=== PATIENT | male | born 1945 | race Caucasian/White ===

== ENCOUNTER 2016-04-20 10:14 | Observation (INO) ==
[2016-04-20] MEDS ORDERED: *HR* Heparin 5,000 UNIT/ML VIAL IVP PRN ×2 (10:28)
[2016-04-20] MEDS ORDERED: *HR* Heparin 5,000 UNIT/ML VIAL IVP ONE ×2 (10:28→12:52)
[2016-04-20] MEDS ORDERED: Heparin 25,000 UNIT/500 ML D5W 25,000 UNIT/500 ML MLS IVC SCH (10:30)
[2016-04-20 10:40] LABS: Hematocrit 48.4 % (37.5-50.1); Hemoglobin 16.1 g/dL (12.9-16.9); Mean Corpuscular HGB Conc 33.3 g/dL (31.6-35.5); Mean Corpuscular Hemoglobin 28.7 pg (28.0-33.3); Mean Corpuscular Volume 86.3 fL (83.0-100.0); Mean Platelet Volume 10.1 fL (9.4-12.4); Platelet Count 150 K/mcL (140-400); Red Blood Count 5.61 M/mcL (4.19-5.50); Red Cell Distribution Width 13.9 % (11.5-14.5)
--- NOTE | 2016-04-20 10:42 | Emergency Department Note ---
START Narrative - START START: I examined this patient and my medical decision-making was reviewed with the SOIL CHECKER/PA/Advanced Practice Nurse/Resident Physician. I agree with the documented findings, disposition and treatment plan as described except to the extent set forth below. Patient sent to the emergency department from cardiology Department for an echo that showed a thrombus in his left ventricle. He should had a syncopal episode recently and had echo ordered to follow up with that. Denies chest pain shortness of breath. Exam shows him in no distress. Heart rate in the 60s. Lungs clear. Plan. Heparin basic labs and admission.
--- NOTE | 2016-04-20 10:46 | Emergency Department Note ---
Disposition Clinical Impression: Thrombus in heart chamber Disposition: Admitted As Inpatient General Adult HPI - General Chief complaint: ED Recheck/Abnormal Lab/Rx Stated complaint: income auditor sent pt for blood clot in heart Time Seen by Provider: 04/20/16 10:19 Source: patient Limitations: no limitations Nursing Notes Reviewed: Yes Vital Signs Reviewed: Yes - History of Present Illness HPI Narrative: Mr. Barillas, a 70yo male, presents from home by POV after being called by his income auditor, Dr. Kerr, for mural thrombi in left ventricle found on echo performed earlier. Indication for echo was a syncopal episode 2 weeks ago wherein patient was bradycardic and hypotensive after waking up. Denies chest pain, palpitations, weakness, dizziness, confusion, headache. Patient's only anticoagulation at this time is aspirin. PMH: insulin dependent DM, agent orange exposure, hx bradycardia. Pain Scale: 0 - Related Data Home Medications Medication Instructions Recorded Confirmed Allopurinol [Zyloprim] 100 mg PO BID 04/20/16 04/20/16 Amlodipine [Norvasc] 5 mg PO QAM 04/20/16 04/20/16 Aspirin 162 mg PO QAM 04/20/16 04/20/16 Carvedilol [Coreg] 25 mg PO BID 04/20/16 04/20/16 Cholecalciferol (Vitamin D3) 2,000 unit PO QPM 04/20/16 04/20/16 [Vitamin D] Cholestyramine 4 gm PO 1200 04/20/16 04/20/16 Finasteride [Proscar] 5 mg PO QAM 04/20/16 04/20/16 Hydrochlorothiazide 25 mg PO QPM 04/20/16 04/20/16 Insulin ASPART [Novolog Flexpen] 35 unit SQ TID 04/20/16 04/20/16 Insulin Glargine [Lantus] 50 unit SQ HS 04/20/16 04/20/16 Levothyroxine [Synthroid] 112 mcg PO QAM 04/20/16 04/20/16 Lisinopril [Zestril] 20 mg PO BID 04/20/16 04/20/16 Lovastatin [Mevacor] 20 mg PO QPM 04/20/16 04/20/16 Allergies Allergy/AdvReac Type Severity Reaction Status Date / Time Oxycodone [From OxyContin] Allergy Hallucinati Verified 04/20/16 10:21 ng All systems ED: reviewed and negative except as stated. Constitutional: Denies: fever, chills, weakness Cardiovascular: Reports: syncope (2 weeks ago). Denies: chest pain, palpitations, dyspnea on exertion, orthopnea Respiratory: Denies: cough, dyspnea, wheezes Gastrointestinal: Denies: abdominal pain, nausea, vomiting, diarrhea, constipation, hematemesis, melena, hematochezia Genitourinary: Denies: dysuria Neurological: Denies: headache, weakness, numbness Hematological/Lymphatic: Denies: easy bleeding, easy bruising Past Medical History - Past Medical History Medical history: Reports: coronary artery disease, diabetes, hyperlipidemia, hypertension, other Surgical history: Reports: other Psychiatric history: Reports: no psych history - Social History Smoking Status: Never smoker Smokeless Tobacco Status: Yes Alcohol use: Reports: none Drug use: Reports: none Physical Exam General: Patient is alert, oriented, and in no acute distress. HEENT: No facial asymmetry. Head is normocephalic and atraumatic. Trachea midline. Cardiovascular: Heart bradycardic rate with regular rhythm without clicks, rubs , gallops, or murmurs. No JVD. PMI nondisplaced. Respiratory: Symmetric chest rise with good respiratory effort. Bilateral breath sounds are clear without wheezing, crackles, or rhonchi. Abdomen: Bowel sounds present normoactive x-4 quadrants. Abdomen is soft, nondistended, and nontender. No organomegaly noted. Psych: Patient's affect is appropriate for situation. - General Limitations: no limitations General appearance: alert, in no apparent distress - Head Head exam: atraumatic, normocephalic - Eye Eye exam: Present: normal appearance - Neurological Exam Neurological exam: Present: alert, oriented X3 - Skin Skin exam: Present: warm, dry, intact Course Course Narrative: Echo 04/20/16: LVEF 50%. akinesis of mid anteroseptum, apical septum, apical inferior wall, apex. Small LV apical thrombi. Mild-moderate concentric LV hypertrophy. Mild LV diastolic dysfunction. No valvular dysfunction. Normal RV size and fcn. Will begin on heparin and admit. Patient was not aware he would be admitted for management of the clot in his heart. He left his truck unlocked. I spoke with security requesting they send someone down to help the patient secure his truck. Vital Signs Temperature 98.1 F 04/20/16 10:19 Pulse Rate 61 04/20/16 10:19 Respiratory Rate 16 04/20/16 10:19 Blood Pressure 139/86 04/20/16 10:19 O2 Sat by Pulse Oximetry 97 04/20/16 10:19 Temperature 97.6 F 04/21/16 11:16 Pulse Rate 53 04/21/16 11:16 Respiratory Rate 16 04/21/16 11:16 Blood Pressure 120/71 04/21/16 11:16 O2 Sat by Pulse Oximetry 96 04/21/16 11:16 Oxygen Delivery Oxygen Delivery Room Air Medical Decision Making - Lab Data Result diagrams: 04/21/16 04:01 04/20/16 10:31 Lab Results 04/20/16 04/20/16 04/20/16 Range/Units 10:31 10:37 10:37 WBC 6.5 (4.3-11.1) K/mcL RBC 5.61 H (4.19-5.50) M/mcL Hgb 16.1 (12.9-16.9) g/dL Hct 48.4 (37.5-50.1) % MCV 86.3 (83.0-100.0) fL MCH 28.7 (28.0-33.3) pg MCHC 33.3 (31.6-35.5) g/dL RDW 13.9 (11.5-14.5) % Plt Count 150 (140-400) K/mcL MPV 10.1 (9.4-12.4) fL PT 10.7 (9.4-12.1) Seconds INR 1.0 APTT 30.5 (26.0-36.0) Seconds Sodium 142 (136-145) mEq/L Potassium 4.0 (3.5-4.5) mEq/L Chloride 109 (98-109) mEq/L Carbon Dioxide 24 (19-29) mEq/L BUN 21 (8-26) mg/dL Creatinine 1.40 H (0.72-1.25) mg/dL Est GFR ( Amer) > 60 (> 60) Est GFR (Non-Af Amer) 50 L (> 60) BUN/Creatinine Ratio 15 (6-26) Glucose 150 H (70-99) mg/dL Calculated Osmolality 300 (280-300) Calcium 9.8 (8.6-10.8) mg/dL
[2016-04-20 10:49] LABS: Prothrombin Time 10.7 Seconds (9.4-12.1)
[2016-04-20 10:52] LABS: Activated Partial Thrombo Time 30.5 Seconds (26.0-36.0)
[2016-04-20 11:01] LABS: BUN/Creatinine Ratio 15 (6-26); Blood Urea Nitrogen 21 mg/dL (8-26); Calcium 9.8 mg/dL (8.6-10.8); Carbon Dioxide 24 mEq/L (19-29); Chloride 109 mEq/L (98-109); Glucose 150 mg/dL (70-99); Osmolality,Calculated 300 (280-300); Sodium 142 mEq/L (136-145); eGFR For African Americans > 60 (> 60); eGFR For Non-African Americans 50 (> 60)
[2016-04-20] MEDS ORDERED: Dextrose Gel 15 GM PO PRN ×2 (12:52)
[2016-04-20] MEDS ORDERED: *HR* Morphine 2 MG/ML SYRINGE IVP PRN (12:52)
[2016-04-20] MEDS ORDERED: Naloxone 0.4 MG/ML INJ IVP PRN (12:52)
[2016-04-20] MEDS ORDERED: Ondansetron 4 MG/2 ML VIAL IVP PRN (12:52)
[2016-04-20] MEDS ORDERED: D5% in Water 1,000 ML IV PRN (12:52)
[2016-04-20] MEDS ORDERED: Acetaminophen 325 MG TABLET PO PRN (12:52)
[2016-04-20] MEDS ORDERED: *HR* Dextrose 50 % in Water (Syg) 50 ML SYRINGE IVP PRN (12:52)
--- NOTE | 2016-04-20 13:00 | Internal Med History&Physical ---
Date of Encounter: 04/20/16 Time of Encounter: 12:57 Assessment and Plan (1) Left ventricular thrombus Current visit: Yes Status: Acute Continue heparin drip Consult cardiology to decide on identical lesion therapy as outpatient Continue telemetry Mild hydration (2) CAD (coronary artery disease) Current visit: Yes Status: Acute Continue aspirin Stable Qualifiers: Coronary Disease-Associated Artery/Lesion type: unspecified vessel or lesion type [place] vs. transplanted heart: unspecified whether [place] or transplanted heart Associated angina: angina presence unspecified Qualified Code(s): I25.10 - Atherosclerotic heart disease of [place] coronary artery without angina pectoris (3) Diabetes Current visit: Yes Status: Acute Continue insulin at home doses of 50 units of Lantus at night and NovoLog 35 units 3 times a day Insulin sliding scale Qualifiers: Diabetes mellitus type: type 2 Diabetes mellitus complication status: without complication Diabetes mellitus custodial insulin use: with terminal supervisor use Qualified Code(s): E11.9 - Type 2 diabetes mellitus without complications ; Z79.4 - terminal gauger (current) use of insulin (4) Hypertension Current visit: Yes Status: Acute Qualifiers: Hypertension type: essential hypertension Qualified Code(s): I10 - Essential (primary) hypertension (5) Obstructive sleep apnea Current visit: Yes Status: Acute Omeprazole for GI prophylaxis and heparin drip for GI DVT prophylaxis. Patient will be admitted for observation. Full code. Time spent on this admission 40 minutes. He is high risk due to left ventricular thrombus Internal Medicine - H&P: HPI Chief complaint: Abnormal echocardiogram Admitted From: Emergency Dept History of present illness: Mr. Barillas is a 70 year old male with a past medical history of diabetes type 2 insulin-dependent, CAD status post multiple stents who had a syncopal episode about 10 days ago, apparently back then he developed bradycardia and low blood pressure, became dizzy but never lost consciousness. She was scheduled to have an echocardiogram was read earlier today by Dr. Hamlin which showed a small left ventricular thrombus with an ejection fraction of 50%, akinesis of mid anteroseptum, apical septum, apical inferior wall, apex. Small LV apical thrombi. Mild-moderate concentric LV hypertrophy. Mild LV diastolic dysfunction. No valvular dysfunction. Normal RV size and fcn. The patient was instructed to come to the emergency room. Currently he is asymptomatic and was started on heparin drip. Denies any chest pain, shortness of breath his blood pressure is 115/74. 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, chronic kidney disease stage III, hypothyroidism, BPH, gout, obstructive sleep apnea) Psychiatric history: no psych history - Past Surgical History Surgical History: other (Cardiac catheterization, umbilical hernia repair, right biceps tendon surgery, nasal surgery) - Social History Smoking Status: Former smoker (Quit a 41 years old) Smokeless Tobacco Status: Yes Alcohol use: none Drug use: none - Additional Family History Additional family history: Father with lung cancer and mother with bladder cancer Internal Medicine - H&P: Meds Allopurinol [Zyloprim] 100 mg PO BID 04/20/16 [History] Amlodipine [Norvasc] 5 mg PO QAM 04/20/16 [History] Aspirin 162 mg PO QAM 04/20/16 [History] Carvedilol [Coreg] 25 mg PO BID 04/20/16 [History] Cholecalciferol (Vitamin D3) [Vitamin D] 2,000 unit PO QPM 04/20/16 [History] Cholestyramine 4 gm PO 1200 04/20/16 [History] Finasteride [Proscar] 5 mg PO QAM 04/20/16 [History] Hydrochlorothiazide 25 mg PO QPM 04/20/16 [History] Insulin ASPART [Novolog Flexpen] 35 unit SQ TID 04/20/16 [History] Insulin Glargine [Lantus] 50 unit SQ HS 04/20/16 [History] Levothyroxine [Synthroid] 112 mcg PO QAM 04/20/16 [History] Lisinopril [Zestril] 20 mg PO BID 04/20/16 [History] Lovastatin [Mevacor] 20 mg PO QPM 04/20/16 [History] Allergies Oxycodone [From OxyContin] Allergy (Verified 04/20/16 10:21) Hallucinating All Systems PM: A 10-system review of systems was performed and is negative for pertinent findings except as documented above in the HPI. Review of systems: No dizziness, chest pain, shortness of breath, no abdominal pain. Other systems out on the reviewed were negative - Constitutional Vitals: Temp Pulse Resp BP Pulse Ox 98.4 F 54 16 125/80 98 04/20/16 12:40 04/20/16 12:40 04/20/16 12:40 04/20/16 12:40 04/20/16 12:40 General appearance: Present: A&O X 3 - Head Head exam: Present: atraumatic, normocephalic - Eye Eye exam: Present: PERRL, conjuntiva pink, sclera anicteric Pupils: Present: PERRL - Neck Neck exam general surgery: Present: supple, trachea midline. Absent: lymphadenopathy - Respiratory Respiratory exam: Present: CTAB. Absent: accessory muscle use, rales, rhonchi, wheezes - Cardiovascular Cardiovascular exam: Present: RRR, +S1, +S2. Absent: diastolic murmur, gallop, rubs, systolic murmur - GI/Abdominal GI/Abdominal exam: Present: normal bowel sounds, soft, no peritoneal signs. Absent: distended, tenderness - Extremities Exam Extremities exam: Present: warm, radial pulses palpable and symetrical. Absent : calf tenderness, cyanotic, pedal edema - Neurological Exam Neurological exam: Present: CN II-XII intact, oriented X3, no focal deficits. Absent: pronater drift, facial droop, speech deficit - Skin Skin exam: Present: dry, intact Internal Med - H&P Results - Labs CBC & Chem 7: 04/20/16 10:37 04/20/16 10:31
--- NOTE | 2016-04-20 13:27 | Cardiology Consult Note ---
Date of Encounter: 04/20/16 Time of Encounter: 13:00 Assessment and Plan (1) Left ventricular thrombus Current Visit: Yes Status: Acute Outpatient TTE completed for syncope. EF 50% (improved) with small left ventricular apical thrombus--reading waste management engineer called patient and recommended inpatient admission for anticoagulation. Etiology and chronicity unclear--no prior TTE for comparison. Hx of apical infarct. Denies hx of arrhythmia. Recommend retirement anticoagulation with Coumadin; education provided to patient regarding coumadin therapy, he is agreeable to proceed. Will complete referral to Coumadin clinic. Continue heparin gtt until INR therapeutic, goal 2-3. Alternatively, patient can be discharged with Coumadin/lovenox bridge. (2) Syncope Current Visit: Yes Status: Acute Isolated episode of syncope in early April; denies recurrence. BP was reported at 54/28 and HR 40--resolved within minutes. He did not seek medical attention at that time. TTE: EF 50% without significant valvular dysfunction. Continue to monitor telemetry overnight. Check carotids, orthostatic vital signs. Qualifiers: Syncope type: unspecified Qualified Code(s): R55 - Syncope and collapse (3) CAD (coronary artery disease) Current Visit: Yes Status: Chronic Hx of CAD s/p PCI to proximal, mid, and distal LAD in 2010. Most recent ischemic evaluation in July 2014 (pre-op): moderate fixed perfusion defect involving the apex and surrounding apical campo consistent with prior infarct; mild apical dipti-infarct ischemia, gated EF 45%. Medical mgmt recommended. Recent TTE shows improved EF, 50%. EF 25% prior to PCI in 2010. No ischemic ECG changes noted. He denies chest pain or angina. Continue asa, statin, and betablocker. Qualifiers: Coronary Disease-Associated Artery/Lesion type: [place] artery [place] vs. transplanted heart: [place] heart Associated angina: without angina Qualified Code(s): I25.10 - Atherosclerotic heart disease of [place] coronary artery without angina pectoris Discussion w patient/family: The assessment and plan as outlined above was discussed with the patient and/or family members who expressed understanding and agreement. All questions were answered. Thank you for involving us in the care of your patient. Please call with any questions. The patient will be discussed and reviewed with Dr. Munroe; changes to be made accordingly. History of Present Illness Consult date: 04/20/16 Requesting physician: Bran Bowden Consult reason: LV thrombus Chief complaint: Syncope x3 weeks ago; LV thrombus History of present illness: Mr. Barillas is a 70 year old male with PMH significant for CAD s/p PCI to LAD ( 2010), recovered cardiomyopathy, CKD-3, gout, HTN, HLD, and JACOB who presented to the ED today due to abnormal echocardiogram findings. Reading waste management engineer, Dr. Kerr, instructed patient to go to the ED due to LV thrombus seen on TTE. Echocardiogram ordered as outpatient after a syncopal event occurred at home 3 weeks ago. He reported he was sitting at his computer playing card games when he suddenly felt like he was going to pass out, he then walked to check his sugar which was normal and before he could check his BP he passed out for a few seconds (witnessed by ); his blood pressure was then taken and was reportedly 54/28 and HR in the 40s. Within an hour his blood pressure and HR normalized and denies recurrent episodes. He denies chest pain or discomfort, shortness of breath, fatigue, leg edema, or palpitations. Past Med Surg Social Fam HX - Past Medical History Medical history: cardiomyopathy (ischemic), coronary artery disease, diabetes, hyperlipidemia, hypertension, renal disease Psychiatric history: no psych history - Past Surgical History Surgical History: other - Social History Smoking Status: Never smoker Smokeless Tobacco Status: Yes Alcohol use: none Drug use: none Medications and Allergies Allopurinol [Zyloprim] 100 mg PO BID 04/20/16 [History] Amlodipine [Norvasc] 5 mg PO QAM 04/20/16 [History] Aspirin 162 mg PO QAM 04/20/16 [History] Carvedilol [Coreg] 25 mg PO BID 04/20/16 [History] Cholecalciferol (Vitamin D3) [Vitamin D] 2,000 unit PO QPM 04/20/16 [History] Cholestyramine 4 gm PO 1200 04/20/16 [History] Finasteride [Proscar] 5 mg PO QAM 04/20/16 [History] Hydrochlorothiazide 25 mg PO QPM 04/20/16 [History] Insulin ASPART [Novolog Flexpen] 35 unit SQ TID 04/20/16 [History] Insulin Glargine [Lantus] 50 unit SQ HS 04/20/16 [History] Levothyroxine [Synthroid] 112 mcg PO QAM 04/20/16 [History] Lisinopril [Zestril] 20 mg PO BID 04/20/16 [History] Lovastatin [Mevacor] 20 mg PO QPM 04/20/16 [History] Allergies Oxycodone [From OxyContin] Allergy (Verified 04/20/16 10:21) Hallucinating All Systems Review: A 10-system review of systems was performed and is negative for pertinent findings except as documented above in the HPI. - Cardiovascular Cardiovascular: as per HPI Physical Examination Vital Signs, Last 4 Hours Temp Pulse Resp BP Pulse Ox 04/20/16 12:40 98.4 F 54 16 125/80 98 04/20/16 12:04 16 110/67 General: Conversant, No Apparent Distress HEENT: Atraumatic, Normocephaly, Mucus Membranes Moist Neck: No JVD Cardiac: Reg Rate and Rhythm, Normal S1 and S2 Lungs: Normal Breath Sounds Neuro: Alert and responsive Abdomen: Soft Skin: No rashes noted on visualized skin Musculoskeletal: No Chest Wall Tenderness Extremities: No Edema, Normal Pulses Results 04/20/16 10:37 04/20/16 10:31 Active Medications Acetaminophen (Tylenol) 650 mg PO Q6HR PRN PRN Reason: Mild Pain (1-3) Stop: 10/20/16 12:53 Allopurinol (Zyloprim) 100 mg PO BID [facility] Stop: 10/20/16 21:01 Amlodipine Besylate (Norvasc) 5 mg PO QAM [facility] PRN Reason: Protocol Stop: 10/21/16 09:01 Aspirin (Aspirin) 162 mg PO QAM [facility] Stop: 10/21/16 09:01 Carvedilol (Coreg) 25 mg PO BIDWM [facility]USAN PRN Reason: Protocol Stop: 10/20/16 17:01 Dextrose/Water (Dextrose 50% (Syg)) 25 ml IVP AD PRN PRN Reason: Hypoglycemia Stop: 10/20/16 12:53 Finasteride (Proscar) 5 mg PO QAM SUSAN PRN Reason: Protocol Stop: 10/21/16 09:01 Glucagon (Glucagen) 1 mg IM ONCE PRN PRN Reason: Hypoglycemia Stop: 10/20/16 12:53 Glucose (Gluctose) 15 gm PO ONCE PRN PRN Reason: Hypoglycemia Stop: 10/20/16 12:53 Glucose (Gluctose) 30 gm PO ONCE PRN PRN Reason: Hypoglycemia Stop: 10/20/16 12:53 Heparin Sodium (Porcine) (Heparin) 6,100 unit 70 unit/kg (6100 unit) IVP Q6HR PRN PRN Reason: SEE COMMENTS Stop: 10/20/16 10:29 Heparin Sodium (Porcine) (Heparin) 3,100 unit 35 unit/kg (3100 unit) IVP Q6H PRN PRN Reason: SEE COMMENTS Stop: 10/20/16 10:29 Hydrochlorothiazide (Hydrochlorothiazide) 25 mg PO QPM SUSAN PRN Reason: Protocol Stop: 10/20/16 18:01 Heparin Sodium/Dextrose (Heparin 25,000 Unit/500 Ml D5w) 25,000 unit in 500 mls @ 24.512 mls/hr IVC .[id number] SUSAN; 14 UNIT/KG/HR PRN Reason: Protocol Stop: 10/20/16 10:31 Last Admin: 04/20/16 10:56 Dose: 14 unit/kg/hr, 24.512 mls/hr Dextrose (Dextrose 5%) 1,000 mls @ 100 mls/hr IV CONT PRN PRN Reason: HYPOGLYCEMIA Stop: 10/20/16 12:53 Insulin Detemir (Levemir) 50 unit SQ HS [facility] Stop: 10/20/16 21:01 Insulin Human Lispro (Humalog) 35 units SQ TIDAC [facility] Stop: 10/20/16 16:31 Insulin Human Lispro (Humalog) 0 units SQ TIDAC [facility] PRN Reason: Protocol Stop: 10/20/16 16:31 Insulin Human Lispro (Humalog) 0 units SQ HS [facility] PRN Reason: Protocol Stop: 10/20/16 21:01 Levothyroxine Sodium (Synthroid) 112 mcg PO DAILY@0630 [facility] Stop: 10/21/16 06:31 Lisinopril (Zestril) 20 mg PO BID [facility] PRN Reason: Protocol Stop: 10/20/16 21:01 Lovastatin (Mevacor) 20 mg PO QPM [facility] Stop: 10/20/16 18:01 Morphine Sulfate (Morphine Sulfate) 2 mg IVP Q4HR PRN PRN Reason: Severe Pain (7-10) Stop: 10/20/16 12:53 Naloxone HCl (Narcan) 0.4 mg IVP Q2MIN PRN PRN Reason: Opioid Reversal Stop: 10/20/16 12:53 Omeprazole (Prilosec) 20 mg PO DAILY@0630 SUSAN PRN Reason: Protocol Stop: 10/21/16 06:31 Ondansetron HCl (Zofran) 4 mg IVP Q8HR PRN PRN Reason: Nausea And Vomiting Stop: 10/20/16 12:53 - Imaging and Cardiology Echo: report reviewed Cardiac cath: report reviewed Other Results: Telemetry: avg HR=56 SB. No significant pause. - EKG Interpretation EKG results cardiology: personally reviewed Consult Discharge Plan - Plan Referrals: Danelle Reynoso MD [Primary Care Provider] -
--- NOTE | 2016-04-20 14:35 | Electrocardiograph Report ---
[facility] Test Date: 2016-04-20 Pat Name: Cale Barillas Department: 105 Room: 2A37 Gender: M Automation Engineer: TIKA : [id number] Requested By: Alvarado Michaels Order Number: [id number] Reading MD: Yohannes Bolanos MD Measurements Intervals [place] Rate: 57 P: 40 NM: 174 QRS: -48 QRSD: 102 T: 110 QT: 394 QTc: 388 Interpretive Statements SINUS BRADYCARDIA MARKED LEFT AXIS DEVIATION LOW QRS VOLTAGE IN EXTREMITY LEADS POSSIBLE ANTERIOR MYOCARDIAL INFARCTION, OF INDETERMINATE AGE Electronically Signed On 04-20-16 14:33:46 EST by Yohannes Bolanos MD
[2016-04-20] MEDS ORDERED: *HR* Warfarin 5 MG TABLET PO ONE (16:29)
[2016-04-20 17:11] LABS: Hematocrit 46.6 % (37.5-50.1); Hemoglobin 15.5 g/dL (12.9-16.9); Mean Corpuscular HGB Conc 33.3 g/dL (31.6-35.5); Mean Corpuscular Hemoglobin 28.5 pg (28.0-33.3); Mean Corpuscular Volume 85.8 fL (83.0-100.0); Mean Platelet Volume 10.4 fL (9.4-12.4); Platelet Count 135 K/mcL (140-400); Red Blood Count 5.43 M/mcL (4.19-5.50)
[2016-04-20 17:22] LABS: INR 1.1; Prothrombin Time 11.4 Seconds (9.4-12.1)
[2016-04-20] MEDS: Insulin LISPRO 300 UNITS/3 ML VIAL SQ SCH ×2 (17:35)
[2016-04-20 17:40] LABS: Activated Partial Thrombo Time 125.9 Seconds (26.0-36.0)
[2016-04-20 17:49] LABS: Heparin anti-factor XA UFH 0.78 IU/mL (0.30-0.70)
[2016-04-20] MEDS ORDERED: hydroCHLOROthiazide 25 MG TABLET PO SCH (18:00)
[2016-04-20] MEDS: Lisinopril 20 MG TABLET PO SCH (20:38)
[2016-04-20] MEDS ORDERED: Insulin LISPRO 300 UNITS/3 ML VIAL SQ SCH (21:00)
[2016-04-20] MEDS ORDERED: Insulin DETEMIR 100 UNIT/ML X5UNITS SQ SCH (21:00)
[2016-04-21 04:21] LABS: Basophils # 0.1 K/mcL (0.0-0.2); Basophils % 1.2 %; Eosinophils # 0.2 K/mcL (0.0-0.6); Hematocrit 44.2 % (37.5-50.1); Hemoglobin 14.7 g/dL (12.9-16.9); Immature Granulocytes % 0.7 % (0-4); Lymphocytes # 1.7 K/mcL (0.6-4.6); Lymphocytes % 27.6 %; Mean Corpuscular HGB Conc 33.3 g/dL (31.6-35.5); Mean Corpuscular Hemoglobin 28.7 pg (28.0-33.3); Mean Corpuscular Volume 86.3 fL (83.0-100.0); Mean Platelet Volume 10.2 fL (9.4-12.4); Monocytes # 0.6 K/mcL (0.0-1.3); Monocytes % 10.2 %; Neutrophils # 3.5 K/mcL (1.6-8.9); Platelet Count 138 K/mcL (140-400); Red Blood Count 5.12 M/mcL (4.19-5.50); Segmented Neutrophils % 57.3 %
[2016-04-21 04:30] LABS: INR 1.1; Prothrombin Time 12.3 Seconds (9.4-12.1)
[2016-04-21 04:33] LABS: Activated Partial Thrombo Time 73.1 Seconds (26.0-36.0)
[2016-04-21 04:41] LABS: Chol/HDL Ratio 5.1 (0-4.9); Cholesterol 132 mg/dL (< 200); HDL Cholesterol 26 mg/dL (40-59); Triglycerides 509 mg/dL (< 150)
[2016-04-21] MEDS ORDERED: Finasteride 5 MG TABLET PO SCH (09:00)
[2016-04-21] MEDS ORDERED: Aspirin 81 MG TAB.CHEW PO SCH (09:00)
[2016-04-21] MEDS ORDERED: amLODIPine 5 MG TABLET PO SCH (09:00)
[2016-04-21] MEDS: Insulin LISPRO 300 UNITS/3 ML VIAL SQ SCH ×4 (09:01→12:02)
[2016-04-21] MEDS: Lisinopril 20 MG TABLET PO SCH (09:03)
--- NOTE | 2016-04-21 09:09 | Cardiology Progress Note ---
Date of Encounter: 04/21/16 Time of Encounter: 08:30 Assessment and Plan (1) Left ventricular thrombus Current Visit: Yes Status: Acute Outpatient TTE completed for syncope. 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 Etiology and chronicity unclear--no prior TTE for comparison. Hx of apical infarct. Denies hx of arrhythmia. Heat CT negative for acute abnormality. Recommend intermediate anticoagulation with Coumadin; education provided to patient regarding coumadin therapy, he is agreeable to proceed. Will complete referral to Coumadin clinic. Continue heparin gtt until INR therapeutic, goal 2-3. Alternatively, patient can be discharged with Coumadin/lovenox bridge. (2) Syncope Current Visit: Yes Status: Acute Isolated episode of syncope in early April; denies recurrence. BP was reported at 54/28 and HR 40--resolved within minutes. He did not seek medical attention at that time. TTE: EF 50% without significant valvular dysfunction. Pre-reeder carotids: normal bilaterally. Telemetry review: avg HR=52 SB. Min=48 nocturnal hours. No significant pause. Will decrease Coreg to 12.5 mg BID. Qualifiers: Syncope type: unspecified Qualified Code(s): R55 - Syncope and collapse (3) CAD (coronary artery disease) Current Visit: Yes Status: Chronic Hx of CAD s/p PCI to proximal, mid, and distal LAD in 2010. Most recent ischemic evaluation in July 2014 (pre-op): moderate fixed perfusion defect involving the apex and surrounding apical campo consistent with prior infarct; mild apical dipti-infarct ischemia, gated EF 45%. Medical mgmt recommended. Recent TTE shows improved EF, 50%. EF 25% prior to PCI in 2010. No ischemic ECG changes noted. He denies chest pain or angina. Continue asa, statin, and betablocker. Qualifiers: Coronary Disease-Associated Artery/Lesion type: [place] artery [place] vs. transplanted heart: [place] heart Associated angina: without angina Qualified Code(s): I25.10 - Atherosclerotic heart disease of [place] coronary artery without angina pectoris Discussion w patient/family: The assessment and plan as outlined above was discussed with the patient and/or family members who expressed understanding and agreement. All questions were answered. Thank you for involving us in the care of your patient. Please call with any questions. The patient was discussed and reviewed with Dr. Munroe; Cardiology will sign- off, please call with questions. Subjective Principal diagnosis: LV thrombus Interval history: Seen and examined. No complaints overnight. Objective Vital Signs, Last 4 Hours Temp Pulse Resp BP Pulse Ox 04/21/16 07:04 97.6 F 98 16 134/71 99 General: Conversant, No Apparent Distress HEENT: Atraumatic, Normocephaly, Mucus Membranes Moist Cardiac: Reg Rate and Rhythm, Normal S1 and S2 Lungs: Normal Breath Sounds Neuro: Alert and responsive Abdomen: Soft Skin: No rashes noted on visualized skin Musculoskeletal: No Chest Wall Tenderness Extremities: No Edema, Normal Pulses Results 04/21/16 04:01 04/20/16 10:31 Lab Results 04/20/16 04/20/16 04/20/16 16:45 16:45 21:01 WBC 6.1 Hgb 15.5 Hct 46.6 Plt Count 135 L INR 1.1 APTT 125.9 H* D 78.3 H 04/21/16 04/21/16 04:01 04:01 WBC 6.1 Hgb 14.7 Hct 44.2 Plt Count 138 L INR 1.1 APTT 73.1 H - Imaging and Cardiology Echo: report reviewed Cardiac cath: report reviewed Other Results: 12 hour tele: avg HR=52 SB. - EKG Interpretation EKG results cardiology: personally reviewed Consult Discharge Plan - Plan Referrals: Danelle Reynoso MD [Primary Care Provider] -
[2016-04-21 11:18] VITALS: BP 120/71
--- NOTE | 2016-04-21 14:49 | Discharge Summary ---
Date of Encounter: 04/21/16 Time of Encounter: 11:30 - Discharge Diagnosis (1) Left ventricular thrombus Priority: Primary Status: Acute (2) Chronic kidney disease Priority: Secondary Status: Chronic Qualifiers: Chronic kidney disease stage: stage 3 (moderate) Qualified Code(s): N18.3 - Chronic kidney disease, stage 3 (moderate) (3) Diabetes Priority: Secondary Status: Chronic Qualifiers: Diabetes mellitus type: type 2 Diabetes mellitus complication status: with kidney complications Diabetes mellitus complication detail: with chronic kidney disease Diabetes mellitus halfway insulin use: with moth exterminator use Chronic kidney disease stage: stage 3 (moderate) Qualified Code(s): E11.22 - Type 2 diabetes mellitus with diabetic chronic kidney disease; N18.3 - Chronic kidney disease, stage 3 (moderate); Z79.4 - skilled nursing (current) use of insulin (4) Hypertension Priority: Secondary Status: Chronic Qualifiers: Hypertension type: essential hypertension Qualified Code(s): I10 - Essential (primary) hypertension (5) Obstructive sleep apnea Priority: Secondary Status: Chronic (6) CAD (coronary artery disease) Priority: Secondary Status: Chronic Qualifiers: Coronary Disease-Associated Artery/Lesion type: [place] artery [place] vs. transplanted heart: [place] heart Associated angina: without angina Qualified Code(s): I25.10 - Atherosclerotic heart disease of [place] coronary artery without angina pectoris - Discharge Medications Prescriptions: Enoxaparin [Lovenox] 90 mg SQ Q12HR 10 Days Warfarin [Coumadin] 5 mg PO 1800 #20 tablet Home Medications: Allopurinol [Zyloprim] 100 mg PO BID 04/20/16 [History] Amlodipine [Norvasc] 5 mg PO QAM 04/20/16 [History] Aspirin 162 mg PO QAM 04/20/16 [History] Carvedilol [Coreg] 25 mg PO BID 04/20/16 [History] Cholecalciferol (Vitamin D3) [Vitamin D3] 2,000 unit PO QPM 04/20/16 [History] Cholestyramine 4 gm PO 1200 04/20/16 [History] Finasteride [Proscar] 5 mg PO QAM 04/20/16 [History] Hydrochlorothiazide 25 mg PO QPM 04/20/16 [History] Insulin ASPART [Novolog Flexpen] 35 unit SQ TID 04/20/16 [History] Insulin Glargine [Lantus] 50 unit SQ HS 04/20/16 [History] Levothyroxine [Synthroid] 112 mcg PO QAM 04/20/16 [History] Lisinopril [Zestril] 20 mg PO BID 04/20/16 [History] Lovastatin [Mevacor] 20 mg PO QPM 04/20/16 [History] Enoxaparin [Lovenox] 90 mg SQ Q12HR 10 Days 04/21/16 [Rx] Warfarin [Coumadin] 5 mg PO 1800 #20 tablet 04/21/16 [Rx] Allergies/Adverse Reactions: Allergies Oxycodone [From OxyContin] Allergy (Verified 04/20/16 10:21) Hallucinating Procedures/tests Complete & Pending: Procedures Performed prior 72 hours Category Date Time Status CT head/brain wo con [CT] Routine Cat Scan 04/20/16 14:49 Completed EV carotid duplex imaging BI Routine Y 04/20/16 13:48 Completed Date of admission: 04/20/16 11:51 Primary care physician: Danelle Reynoso MD Consults: 04/20/16 12:57 Consult to Cardiology [CONS] Routine Comment: Consulting Provider: Cardiology Elizabeth Reason for Consult: LV thrombus Call Completed: Yes Discharging clinician: Antonieta Amato Anticipated date of discharge: 04/21/16 - Patient Status Disposition: Home, Self-Care Condition: Good Functional capacity at discharge: independent ambulation Overall status at discharge: patient is progressing back to baseline - Discharge Instructions Instructions: Warfarin (By mouth), Enoxaparin (Injection), Coronary Artery Disease (DC) Follow Up With: Danelle Reynoso MD [Primary Care Provider] - 04/25/16 10:20 am () Maryuri Rubio CNP [Partnered Physician] - 05/22/16 1:30 pm Additional Instructions: You have an appointment with the Anticoagulation Clinic on April 26 @ 3:00 pm. They will check your INR level and send results to cardiology and your PCP. This appointment will last approximately one hour. If you have questions or need directions, please call [phone]. - Diet and Activity Activity: resume usual activities as tolerated Diet: diabetic diet, low fat, low cholesterol, low salt diet Hospital course: Mr. Barillas is a 70 year old male with the above medical problems who was recommended by his containers sales representative to present to the emergency room due to abnormal echocardiogram. Patient presented to routine outpatient echocardiogram and was noted to have left ventricular apical thrombus and referred to the emergency room. He was evaluated by cardiology and started on IV heparin drip for anticoagulation. His initial labs were within normal limits and he remained hemodynamically stable. He is noted to have elevated serum triglycerides and he is currently receiving outpatient therapy for this. 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 He is currently medically stable for discharge with subcutaneous bridging Lovenox and oral Coumadin with outpatient follow-up in anticoagulation clinic and cardiology clinic. Time spent discussing smoking cessation with patient: more than 10 minutes (45 min) - Time Spent with Patient Total time spent providing and/or coordinating discharge services: - Constitutional Vitals: Temp Pulse Resp BP Pulse Ox 97.6 F 53 16 120/71 96 04/21/16 11:16 04/21/16 11:16 04/21/16 11:16 04/21/16 11:16 04/21/16 11:16 General appearance: Present: A&O X 3, answers questions appropriately - Respiratory Respiratory exam: Present: CTAB. Absent: accessory muscle use, rales, rhonchi, wheezes - Cardiovascular Cardiovascular exam: Present: RRR, +S1, +S2. Absent: diastolic murmur, gallop, rubs, systolic murmur
[2016-04-21] MEDS ORDERED: Warfarin perPT PO PRN (18:00)
[2016-04-21] MEDS ORDERED: *HR* Warfarin 5 MG TABLET PO ONE (18:00)
--- NOTE | 2016-04-21 18:19 | Carotid Imaging Report ---
Carotid Duplex Patient Name:Cale Barillas Order Number:[id number] Procedure Date:04/20/2016 Date:6Age:70 yrs Gender:Male Rt.BP:125 / 80 mmHgHeart Rate: Location:[facility] Room #: 2A37 Ehs Specialist:Suzie Khan MARTHA Referring MD:Maryuri Rubio CNP learning program manager:Danelle Reynoso MD Reading MD:Jonathan Walton MD Primary Indications:Syncope and collapse Risk Factors Yes/No Hypertension Yes Diabetes Yes Hypercholesterolemia Yes Smoker Previous Yes Impressions: The bilateral carotid arteries are normal throughout. Recommendations: Test completed on 04/20/2016 at 6:49:00 pm. Findings Carotid Duplex: Conde scale imaging combined with Doppler flow analysis suggests normal findings bilaterally. Right: There is antegrade spectral Doppler flow patterns in the right vertebral artery. Left: There is antegrade spectral Doppler flow patterns in the left vertebral artery. Prior Study: No prior study available for comparison. Carotid Results Right PSV EDV Assessment Proximal CCA 106 13 Mid CCA 103 15 Distal CCA 83 15 Bifurcation 36 9 Proximal ICA 73 20 Mid ICA 70 20 Distal ICA 61 15 ECA 80 7 Vertebral Artery 54 16 Antegrade Flow Left PSV EDV Assessment Proximal CCA 81 13 Mid CCA 91 14 Distal CCA 85 17 Bifurcation 56 14 Proximal ICA 52 15 Mid ICA 73 19 Distal ICA 76 22 ECA 86 10 Vertebral Artery 39 9 Antegrade Flow Ratio's Right ICA/CCA Ratio: 0.71 ICA/CCA Values: 73/103 Left ICA/CCA Ratio: 0.84 ICA/CCA Values: 76/91 Updated by Jonathan Walton MD on 04/21/2016 6:13:25 PM electronically signed on 04/21/2016 6:14:06 PM with status of Final
== END 2016-04-21 15:38 | disposition home or self-care (01) ==
LOC: EMEROO 10:14 → 2ANU 10:14
PROVIDERS: ADMIT Internal Medicine; ATTEND Internal Medicine